=== PATIENT | male | born 1970 | race African-American/Black ===

== ENCOUNTER 2019-08-26 23:32 | Emergency (ER) | payer MEDICARE ==
[2019-08-27] MEDS ORDERED: Azithromycin 500 MG VIAL ONE (00:02)
[2019-08-27] MEDS ORDERED: Acetaminophen/Codeine 30-300mg Tablet ONE (00:02)
[2019-08-27] MEDS ORDERED: Azithromycin 250 MG TAB ONE (00:03)
[2019-08-27] MEDS ORDERED: Benzonatate 100 MG CAP ONE (00:06)
--- NOTE | 2019-08-27 10:26 | RAD ---
EXAM: Chest 2 views: HISTORY: Cough COMPARISON: 06/26/2007 FINDINGS: Heart size:Within normal limits. Lungs:Clear of acute process. Atherosclerotic changes of the aorta. No confluent lobar pneumonia, overt edema, pleural effusion, pneumothorax, or other significant acute process. IMPRESSION: Mild atherosclerosis of the aorta. Stable appearance. No acute intrathoracic disease.
== END 2019-08-27 01:39 | disposition home or self-care (01) ==
LOC: MADERS 23:32
DX: J18.9 Pneumonia, unspecified organism (principal); R03.0 Elevated blood-pressure reading, without diagnosis of hypertension
CPT/HCPCS: 71046; J0456

== ENCOUNTER 2019-10-03 07:52 | Outpatient (CLI) | payer MEDICARE ==
[2019-10-03 09:02] LABS: ALT (SGPT) 58 U/L (8-55); AST (SGOT) 45 U/L (5-34); Albumin 4.3 g/dL (3.5-5.0); Alkaline Phosphatase 80 U/L (40-110); Anion Gap 13 mmol/L (10-20); BUN (Urea Nitrogen) 10 mg/dL (8.4-25.7); Bilirubin, Total 0.3 mg/dL (0.2-1.2); Calc. Creatinine Clearance 0 mL/min (70-130); Carbon Dioxide 27 mmol/L (22-29); Chloride 104 mmol/L (98-107); Estimated GFR-MDRD Greater than 90; Globulin 2.6 g/dL (2.4-3.5); Glucose 90 mg/dL (70-105); Potassium 4.4 mmol/L (3.5-5.1); Protein, Total 6.9 g/dL (6.0-8.3); Sodium 140 mmol/L (136-145)
[2019-10-03 09:06] LABS: #Basophils 0.1 thou/uL (0.0-0.2); #Eosinphils 0.4 thou/uL (0.0-0.7); #Lymphocytes 1.2 thou/uL (1.20-3.40); #Monocytes 0.7 thou/uL (0.11-0.59); #Neutrophils 5.7 thou/uL (1.40-6.50); %Basophils 1.6 % (0.0-1.0); %Eosinophils 4.4 % (0.0-10.0); %Lymphocytes 14.7 % (21.0-51.0); %Monocytes 8.5 % (0.0-10.0); %Neutrophils 70.8 % (42.0-75.0); Hemoglobin 13.1 g/dL (14.0-18.0); Mean Corpuscular HGB CONC 29.7 g/dL (32.0-36.0); Mean Corpuscular Volume 84.2 fL (78.0-98.0); Mean Platelet Volume 7.8 fL (7.4-10.4); Platelet Count 296 thou/uL (130-400); Red Blood Cell (RBC) Count 5.24 mill/uL (4.70-6.10); White Blood Cell (WBC) Count 8.1 thou/uL (4.8-10.8)
[2019-10-03 09:09] LABS: Anisocytosis SLIGHT = 6-15 cells (100X) (0-5/hpf)
[2019-10-03 09:10] LABS: Platelet Morphology Comment Appears Adequate
--- NOTE | 2019-10-03 09:13 | RAD ---
LEFT KNEE 3 VIEWS: Date: 10/03/2019 HISTORY: Chronic left knee pain without recent trauma. FINDINGS/IMPRESSION: No fracture, dislocation, or bony destruction seen. No significant osteophytosis is noted. POS: MARIANNEA
--- NOTE | 2019-10-03 09:17 | RAD ---
RIGHT KNEE 3 VIEWS: Date: 10/03/2019 HISTORY: Chronic pain without recent trauma. FINDINGS: There are mild arthritic changes of the knee. There is a cortical lucency through the medial side of the tibia just below the level of the fused epiphyseal plate. There is a secondary area of lucency wh ich is just on the lateral side of the tibial spines. Finding suspicious for a subtle fracture probab ly an insufficiency type fracture. Clinical correlation as to area of patient's pain. IMPRESSION: Findings suspicious for an insufficiency type fracture along the medial side of the tibia. This message was relayed to Elisabet at Dr. Grant's office. CODE CR.
== END 2019-10-03 07:53 | disposition home or self-care (01) ==
LOC: MADLABBHPM 07:52
PROVIDERS: ATTEND Family Medicine
DX: M25.561 Pain in right knee (principal); M25.562 Pain in left knee; I10 Essential (primary) hypertension; M79.89 Other specified soft tissue disorders; E66.01 Morbid (severe) obesity due to excess calories; Z83.3 Family history of diabetes mellitus
CPT/HCPCS: 36415; 80053; 83036; 84443; 85025

== ENCOUNTER 2020-05-02 20:38 | Emergency (ER) | payer MEDICARE ==
[2020-05-03 17:35] LABS: SARS-CoV-2 MS2 Positive; SARS-CoV-2 N Gene Negative; SARS-CoV-2 S Gene Negative; SARS-CoV-2 by NAA Not Detected (NotDetected); SARS-CoV-2 orf1ab Negative
== END 2020-05-02 21:50 | disposition home or self-care (01) ==
LOC: MADERS 20:38
DX: R09.81 Nasal congestion (principal); R05 Cough; Z20.828 Contact with and (suspected) exposure to other viral communicable diseases; I10 Essential (primary) hypertension; Z79.899 Other long term (current) drug therapy
CPT/HCPCS: 87635; 99281; U0003

== ENCOUNTER 2021-06-24 20:30 | Emergency (ER) | payer MEDICARE ==
[2021-06-25 22:29] LABS: SARS-CoV-2 PCR by NAA DETECTED (NotDetected)
== END 2021-06-24 23:10 | disposition home or self-care (01) ==
LOC: MADERS 20:30
DX: U07.1 COVID-19 (principal); I10 Essential (primary) hypertension
CPT/HCPCS: 99283; U0003; U0005

== ENCOUNTER 2021-06-29 15:34 | Emergency (ER) | payer MEDICARE ==
[2021-06-29] MEDS ORDERED: Amlodipine 5 MG TAB ONE (16:08)
== END 2021-06-29 16:15 | disposition home or self-care (01) ==
LOC: MADERS 15:34
DX: I10 Essential (primary) hypertension (principal); E66.9 Obesity, unspecified; Z91.14 Patient's other noncompliance with medication regimen; Z20.822 Contact with and (suspected) exposure to COVID-19; Z68.45 Body mass index [BMI] 70 or greater, adult
CPT/HCPCS: 99283

== ENCOUNTER 2022-09-22 14:33 | Emergency (ER) | payer MEDICARE ==
[2022-09-22] MEDS ORDERED: Acetaminophen 500 MG TAB ONE (14:55)
[2022-09-22] MEDS ORDERED: Lidocaine 4% Patch ONE (14:55)
[2022-09-22] MEDS ORDERED: Ibuprofen 800 MG TAB ONE (14:55)
== END 2022-09-22 15:42 | disposition home or self-care (01) ==
LOC: MADERS 14:33
DX: M94.0 Chondrocostal junction syndrome [Tietze] (principal); I10 Essential (primary) hypertension; E78.5 Hyperlipidemia, unspecified; E66.9 Obesity, unspecified

== ENCOUNTER 2023-01-18 22:42 | Emergency (ER) | payer MEDICARE ==
[2023-01-18 23:48] LABS: Band 3 % (5-11); Eosinophils 2 % (0-10); Hematocrit 43.7 % (42.0-52.0); Hemoglobin 13.6 g/dL (14.0-18.0); Lymphocytes 26 % (21-51); MDiff Complete? YES; Manual Diff?? YES; Mean Corpuscular HGB CONC 31.2 g/dL (32.0-36.0); Mean Corpuscular Hemoglobin 26.1 pg (27.0-31.0); Mean Corpuscular Volume 83.8 fl (78.0-98.0); Mean Platelet Volume 9.5 fL (7.4-10.4); Monocytes 9 % (0-10); Neutrophil 60 % (42-75); Platelet Count 275 10x3/uL (130-400); Red Blood Cell (RBC) Count 5.21 mill/uL (4.70-6.10); White Blood Cell (WBC) Count 8.7 10x3/uL (4.8-10.8)
[2023-01-18 23:49] LABS: Platelet Adequacy Comment Appears Adequate; RBC Morph Comment Within Normal Limits
[2023-01-18 23:54] LABS: ALT (SGPT) 25 U/L (8-55); AST (SGOT) 19 U/L (5-34); Albumin 4.2 g/dL (3.5-5.0); Alkaline Phosphatase 69 U/L (40-110); Anion Gap 15 mmol/L (10-20); BUN (Urea Nitrogen) 9 mg/dL (8.4-25.7); Bilirubin, Total 0.4 mg/dL (0.2-1.2); Calc. Creatinine Clearance 0 mL/min (70-130); Calcium 9.3 mg/dL (7.8-10.44); Carbon Dioxide 23 mmol/L (22-29); Chloride 105 mmol/L (98-107); Estimated GFR 79; Globulin 3.1 g/dL (2.4-3.5); Glucose 105 mg/dL (70-105); Potassium 3.6 mmol/L (3.5-5.1); Protein, Total 7.3 g/dL (6.0-8.3); Sodium 139 mmol/L (136-145)
[2023-01-19] MEDS ORDERED: Aspirin Chewable 81 MG TAB ONE (00:08)
[2023-01-19] MEDS ORDERED: Furosemide 40 MG/4 ML VIAL ONE (00:08)
[2023-01-19 00:12] LABS: CKMB 4.2 ng/mL (0-6.6)
[2023-01-19 01:47] LABS: Troponin I 0.021 ng/mL (< 0.028)
== END 2023-01-19 02:10 | disposition home or self-care (01) ==
LOC: MADERS 22:42
DX: I11.0 Hypertensive heart disease with heart failure (principal); I50.9 Heart failure, unspecified; E78.00 Pure hypercholesterolemia, unspecified; Z79.899 Other long term (current) drug therapy
CPT/HCPCS: 71045; 80053; 82553; 83735; 83880; 84484; 85025; 93005; 96374; J1940

== ENCOUNTER 2024-05-24 17:23 | Emergency (ER) | payer MEDICARE, SELFPAY ==
[2024-05-24] MEDS ORDERED: Benzonatate 100 MG CAP ONE (18:00)
[2024-05-24] MEDS ORDERED: Oseltamivir 75 MG CAP ONE (18:57)
== END 2024-05-24 19:08 | disposition home or self-care (01) ==
LOC: MADERS 17:23
DX: J11.1 Influenza due to unidentified influenza virus with other respiratory manifestations (principal); I10 Essential (primary) hypertension; Z79.899 Other long term (current) drug therapy; Z79.82 Long term (current) use of aspirin
CPT/HCPCS: 71046; 87428